=== PATIENT | male | born 1965 | race Caucasian/White ===

== ENCOUNTER 2016-11-22 17:19 | Emergency (ER) | payer OTHER ==
[~2016-11-22] VITALS: Ht 172.7 cm; Wt 63.5 kg
[~2016-11-22 17:19] MED LIST: ACETAMINOPHEN PO; ACETAMINOPHEN650 M1 PO; AMOXICILLIN875 MG PO; BENADRYL PO; FIORINAL CAPSUL1 CAP PO; IRON SUPPLEMENT1 TAB PO; NO MEDICATIONS; PHENERGAN PO; PHENERGAN25 M1 PO; PREVACID PO; PROTONIX PO; VICODIN 5/500 T1 TAB PO; VOLTAREN50 MG PO
== END 2016-11-22 21:16 | disposition home or self-care (01) ==
LOC: CED 17:19
DX: K64.9 Unspecified hemorrhoids (principal)
CPT/HCPCS: 99282